=== PATIENT | female | born 1990 | race Caucasian/White ===

== ENCOUNTER 2018-03-18 12:40 | Emergency (ER) | payer OTHER ==
[2018-03-18 12:49] VITALS: BP 113/75
[2018-03-18] MEDS ORDERED: IBUPROFEN 600 MG TAB PO ONE (13:33)
--- NOTE | 2018-03-18 13:33 | EDPHY ---
General Time Seen by Provider: 03/18/18 13:24 Narrative: CHIEF COMPLAINT: Hand crushed HISTORY OF PRESENT ILLNESS: Patient presents by private vehicle with complaints of a crush to her left hand while at work just prior to arrival. She states that she was moving a table to a Doorway when the table smashed her hand between the doorjamb. Sudden onset of pain on the dorsum of the left hand between the index middle phalanx metacarpals. Radiates through to the palm of the hand and into the forearm. [id number]. Worse palpation movement. No numbness tingling. Weakness but no difficulty been or straightening the fingers, but hurts to do so. No laceration or puncture. No injury elsewhere. Right-hand dominant. No other associated complaints or modifying factors. TIME OF INJURY: Just prior to arrival TETANUS STATUS: Up-to-date MEDICAL/SURGICAL/SOCIAL HISTORY: Uncomplicated REVIEW OF SYSTEMS: Ten systems reviewed and are negative unless otherwise noted in the HPI EXAMINATION: Vitals: Triage VS reviewed General Appearance: Alert, no distress Head: normocephalic, atraumatic Cardiovascular: Symmetric radial pulses 2+. Brisk cap refill in the fingers of the left hand. Neurological: A&O, light and 2 point sensory symmetric, dumper bulk system and interossei strength symmetric Skin: Warm and dry, no rash. No petechiae or purpura. No puncture laceration Extremities: Tenderness of the left hand over the dorsum between the 2nd and 3rd metacarpals. No swelling of the right or left upper extremity. Full flexion extension of the fingers left hand without deficit. DIFFERENTIAL DIAGNOSES: Including but not limited to laceration, laceration complication, laceration foreign body, laceration with deep tissue injury MDM: 1:25 p.m. Acute crush injury to the left hand with no signs of compartment syndrome, laceration, puncture for osseous injury. X-ray has been read by radiologist as negative. She is neuro intact distal to the injury. No need for further imaging. She will be placed in Butch wrap and given ibuprofen. We discussed ice and elevation. We discussed follow up with worker's compensation for definitive care. We discussed ED precautions. I have answered her questions. She is discharged home stable condition. SUPERVISION: This patient was independently evaluated without direct involvement of or examination by the attending physician ED Precautions: Worsening pain. Erythema, edema, cyanosis, pallor, paresthesia or anesthesia. - Diagnostics Imaging Results: Imaging Impressions Hand X-Ray 03/18/18 12:50 Impression: Negative. No acute fracture. - History Smoking Status: Current every day smoker - Objective Vital Signs: Initial Vital Signs Temperature (C) 98.6 F 03/18/18 12:45 Heart Rate 84 03/18/18 12:45 Respiratory Rate 16 03/18/18 12:45 Blood Pressure 113/75 03/18/18 12:45 O2 Sat (%) 97 03/18/18 12:45 O2 Delivery Mode Room Air Allergies/Adverse Reactions: amoxicillin [Amoxicillin] Allergy (Severe, Verified 03/18/18 12:46) Anaphylaxis Home Medications: Medication Instructions Recorded NK [No Known Home Meds] 03/18/18 Medications Given: Discontinued Medications Ibuprofen (Motrin) 600 mg PO EDNOW ONE Stop: 03/18/18 13:34 Last Admin: 03/18/18 13:37 Dose: Not Given Departure - Departure Disposition: Home, Routine, Self-Care Clinical Impression: Crushing injury of hand, left Qualifiers: Encounter type: initial encounter Qualified Code(s): S67.22XA - Crushing injury of left hand, initial encounter Sprain of hand, left Qualifiers: Encounter type: initial encounter Qualified Code(s): S63.92XA - Sprain of unspecified part of left wrist and hand, initial encounter Condition: Good Instructions: Hand Sprain (ED), Crush Injury (ED) Additional Instructions: 1. Medications as discussed as needed, including ibuprofen 600mg every 8 hours as needed. Do not take in conjunction with anticoagulants or other NSAIDs 2. Follow up with Orthopedics for definitive care 3. Rest, ice and elevation often. 4. ED precautions as discussed for worsening pain, redness, fever, changes in range of motion, changes in sensation Referrals: Lupillo Urias [Primary Care Provider] - As per Instructions Radha Patiño MD [Medical Doctor] - As per Instructions Stand Alone Forms: Work Comp Follow Up
== END 2018-03-18 13:35 | disposition home or self-care (01) ==
DX: S63.92XA Sprain of unspecified part of left wrist and hand, initial encounter (principal); W23.1XXA Caught, crushed, jammed, or pinched between stationary objects, initial encounter; Y99.0 Civilian activity done for income or pay; F17.200 Nicotine dependence, unspecified, uncomplicated